=== PATIENT | female | born 1980 | race Caucasian/White ===

== ENCOUNTER 2024-09-15 16:54 | Inpatient (IN) | payer OTHER ==
[2024-09-15 17:31] LABS: BASOPHILS ABSOLUTE AUTO 0.04 K/uL (0.00-0.10); BASOPHILS PERCENT AUTO 0.3 % (0.1-1.3); EOSINOPHILS ABSOLUTE AUTO 0.05 K/uL (0.00-0.40); EOSINOPHILS PERCENT AUTO 0.3 % (0.0-5.4); HEMATOCRIT 43.7 % (34.3-46.0); HEMOGLOBIN 15.6 g/dL (11.2-15.5); IMMATURE GRAN ABSOLUTE AUTO 0.05 K/uL (0.00-0.23); IMMATURE GRAN PERCENT AUTO 0.3 % (0.0-0.7); LYMPHOCYTES ABSOLUTE AUTO 1.57 K/uL (0.8-3.3); LYMPHOCYTES PERCENT AUTO 10.2 % (11.4-47.7); MEAN CORPUSCULAR HEMOGLOBIN 35.2 pg (31.6-35.5); MEAN CORPUSCULAR HGB CONC 35.7 g/dL (31.6-35.5); MEAN CORPUSCULAR VOLUME 98.6 fL (81.4-99.0); MONOCYTES ABSOLUTE AUTO 0.84 K/uL (0.20-0.90); MONOCYTES PERCENT AUTO 5.5 % (3.3-12.6); NEUTROPHILS ABSOLUTE AUTO 12.86 K/uL (1.0-7.6); NEUTROPHILS PERCENT AUTO 83.4 % (40.0-78.1); PLATELET COUNT,PLT 244 K/uL (130-375); RED BLOOD CELL COUNT 4.43 M/uL (3.77-5.24); WHITE BLOOD CELL COUNT,WBC 15.4 K/uL (3.2-11.0)
[2024-09-15] MEDS: Iopamidol 612 MG/ML 100 ML Bottle IV SCH (17:48)
[2024-09-15] MEDS: Sodium Chloride 0.9% 60 ML IV SCH (17:48)
[2024-09-15 17:54] LABS: A/G RATIO 1.2 (1.2-2.2); ALANINE AMINOTRANSFERASE,ALT 26 U/L (12-78); ALBUMIN 4.4 g/dL (3.4-5.0); ALKALINE PHOSPHATASE 82 U/L (46-116); ASPARTATE AMNIOTRANSFERASE,AST 15 U/L (15-37); BILIRUBIN TOTAL 0.9 mg/dL (0.2-1.0); BLOOD UREA NITROGEN,BUN 7 mg/dL (7-18); C-REACTIVE PROTEIN 4.53 mg/dL (<0.50); CALCIUM 9.7 mg/dL (8.5-10.1); CARBON DIOXIDE,CO2 27 mmol/L (21-32); CHLORIDE,CL 102 mmol/L (100-108); CREATININE 0.7 mg/dL (0.6-1.0); EST CRCL DRUG DOSING (CG) 83.07 mL/min; ESTIMATED GFR 108 mL/min (>60); GLUCOSE RANDOM 97 mg/dL (74-106); POTASSIUM,K 3.7 mmol/L (3.6-5.2); SODIUM,NA 139 mmol/L (140-148)
[2024-09-15 17:57] LABS: ANION GAP 13.7 mmol/L (5.0-14.0)
[2024-09-15] MEDS: Lactated Ringers 1,000 ML IV SCH (18:00)
[2024-09-15] MEDS: Sodium Chloride 0.9% 10 ML Syringe FLUSH PRN (18:00)
[2024-09-15] MEDS ORDERED: Naloxone 0.4 MG/ML SDV IVPUSH PRN ×2 (19:03→20:35)
[2024-09-15] MEDS: Ondansetron 4 MG/2 ML SDV IVPUSH ONE (19:09)
[2024-09-15] MEDS: HYDROmorphone 0.5 MG/0.5 ML Syringe IVPUSH ONE (19:12)
[2024-09-15] MEDS: LORazepam 1 MG Tab PO ONE (20:23)
[2024-09-15] MEDS ORDERED: Morphine 2 MG/ML SYRINGE IVPUSH PRN (20:35)
[2024-09-15] MEDS ORDERED: Ondansetron 4 MG Tab.DIS PO PRN (20:35)
[2024-09-15] MEDS ORDERED: Ondansetron 4 MG/2 ML SDV IV PRN (20:35)
[2024-09-15] MEDS ORDERED: Albuterol/Ipratropium 3.0-0.5 MG/3 ML Neb Soln NEB PRN (20:35)
[2024-09-15] MEDS ORDERED: Albuterol 0.083% 2.5 MG/3 ML Neb Soln NEB PRN (20:35)
[2024-09-15] MEDS ORDERED: Formoterol/Mometasone 200-5 MCG 8.8 GM Inhaler INH PRN (20:35)
[2024-09-15] MEDS ORDERED: Acetaminophen 325 MG Tab PO PRN (20:35)
[2024-09-15] MEDS: Pantoprazole 40 MG Vial IVPUSH SCH (21:16)
[2024-09-15] MEDS: Piperacillin/Tazobactam 4.5 GM in Sodium Chloride 0.9% 100 ML IV ONE (21:17)
[2024-09-15] MEDS: Sodium Chloride 0.9% 1,000 ML IV SCH (21:20)
[2024-09-15] MEDS: methylPREDNISolone Sodium Succinate 40 MG/1 ML SDV IVPUSH SCH (21:26)
[2024-09-15] MEDS: Nicotine 14 MG/24 Hr Patch TRDERM SCH (22:18)
[2024-09-15] MEDS: metroNIDAZOLE/Normal Saline 500 MG in Premix Bag 1 BAG IV SCH (22:18)
[2024-09-15] MEDS: ALPRAZolam 0.5 MG Tab PO PRN (23:49)
[2024-09-16 00:08] LABS: APPEARANCE,URINE CLEAR (CLEAR); BILIRUBIN,URINE NEGATIVE (NEGATIVE); COLOR,URINE YELLOW (YELLOW); GLUCOSE,URINE NEGATIVE (NEGATIVE); KETONES,URINE NEGATIVE (NEGATIVE); LEUKOCYTE ESTERASE,URINE NEGATIVE (NEGATIVE); NITRITE,URINE NEGATIVE (NEGATIVE); OCCULT BLOOD,URINE SMALL (NEGATIVE); PH,URINE 7.5 (5.0-8.0); PROTEIN,URINE NEGATIVE (NEGATIVE); UROBILINOGEN,URINE 0.2 EU/dL (0.2-1.0)
[2024-09-16 00:14] LABS: AMORPHOUS SEDIMENT,URINE NOT SEEN; BACTERIA,URINE FEW; EPITHELIAL CELLS,URINE RARE; MUCUS,URINE FEW; WBC,URINE 0-5 (0-5)
[2024-09-16] MEDS: Piperacillin/Tazobactam 4.5 GM in Sodium Chloride 0.9% 100 ML IV SCH (01:09)
[2024-09-16] MEDS: Piperacillin/Tazobactam 3.375 GM in Sodium Chloride 0.9% 50 ML IV SCH (01:11)
[2024-09-16 05:34] LABS: BASOPHILS PERCENT AUTO 0.2 % (0.1-1.3); HEMATOCRIT 39.8 % (34.3-46.0); HEMOGLOBIN 13.9 g/dL (11.2-15.5); IMMATURE GRAN ABSOLUTE AUTO 0.05 K/uL (0.00-0.23); IMMATURE GRAN PERCENT AUTO 0.4 % (0.0-0.7); LYMPHOCYTES PERCENT AUTO 5.2 % (11.4-47.7); MEAN CORPUSCULAR HEMOGLOBIN 34.8 pg (31.6-35.5); MEAN CORPUSCULAR HGB CONC 34.9 g/dL (31.6-35.5); MEAN CORPUSCULAR VOLUME 99.7 fL (81.4-99.0); MONOCYTES ABSOLUTE AUTO 0.13 K/uL (0.20-0.90); MONOCYTES PERCENT AUTO 1.1 % (3.3-12.6); NEUTROPHILS ABSOLUTE AUTO 10.81 K/uL (1.0-7.6); NEUTROPHILS PERCENT AUTO 93.1 % (40.0-78.1); PLATELET COUNT,PLT 230 K/uL (130-375); RED BLOOD CELL COUNT 3.99 M/uL (3.77-5.24); WHITE BLOOD CELL COUNT,WBC 11.6 K/uL (3.2-11.0)
[2024-09-16 05:46] LABS: BASOPHILS ABSOLUTE AUTO 0.02 K/uL (0.00-0.10)
[2024-09-16 05:54] LABS: CALCIUM 9.2 mg/dL (8.5-10.1); CREATININE 0.7 mg/dL (0.6-1.0); EST CRCL DRUG DOSING (CG) 83.41 mL/min; POTASSIUM,K 3.8 mmol/L (3.6-5.2)
[2024-09-16 05:56] LABS: ANION GAP 11.8 mmol/L (5.0-14.0)
[2024-09-16] MEDS ORDERED: Formoterol/Mometasone 200-5 MCG 8.8 GM Inhaler INH PRN (07:07)
[2024-09-16] MEDS: oxyCODONE 5 MG Tab PO PRN (09:05)
[2024-09-16] MEDS: Piperacillin/Tazobactam/Dext 4.5 GM in Premix Bag 1 BAG IV SCH (09:06)
== END 2024-09-16 13:55 | disposition home or self-care (01) | DRG 392 ==
LOC: JP.ED 16:54 → JP.MS 19:52
PROVIDERS: ADMIT Internal Medicine; ATTEND Internal Medicine
DX: K57.32 Diverticulitis of large intestine without perforation or abscess without bleeding (principal); E44.1 Mild protein-calorie malnutrition; Z68.1 Body mass index [BMI] 19.9 or less, adult; K52.9 Noninfective gastroenteritis and colitis, unspecified; J45.909 Unspecified asthma, uncomplicated; K21.9 Gastro-esophageal reflux disease without esophagitis; F41.9 Anxiety disorder, unspecified; F17.210 Nicotine dependence, cigarettes, uncomplicated; F15.90 Other stimulant use, unspecified, uncomplicated; Z88.8 Allergy status to other drugs, medicaments and biological substances; Z79.51 Long term (current) use of inhaled steroids; Z79.899 Other long term (current) drug therapy; Z86.16 Personal history of COVID-19; Z98.890 Other specified postprocedural states
CPT/HCPCS: 36415; 74177; 80048; 80053; 81001; 85025; 86140; 96361; 96374; 96375; 99222; 99238; 99285; 99285-25; A9270-GY; J1171; J1836; J2405; J2470; J2543; J2919; J3490; J7030; J7120; Q9967

== ENCOUNTER 2024-12-11 06:22 | Day surgery (SDC) | payer OTHER ==
[2024-12-11] MEDS ORDERED: Propofol 200 MG/20 ML SDV ONE (07:02)
[2024-12-11] MEDS ORDERED: fentaNYL 50 MCG/ML SDV ONE (07:02)
[2024-12-11] MEDS ORDERED: Midazolam 1 MG/ML 2 ML SDV ONE (07:02)
[2024-12-11] MEDS: Lactated Ringers 1,000 ML IV SCH (07:20)
== END 2024-12-11 09:01 | disposition home or self-care (01) ==
LOC: JP.SDS 06:22
PROVIDERS: ATTEND Surgery
DX: D12.4 Benign neoplasm of descending colon (principal); K57.30 Diverticulosis of large intestine without perforation or abscess without bleeding; R10.9 Unspecified abdominal pain
CPT/HCPCS: 00811; 45380; 45385; 81025; 88305; J2250; J2704; J3010; J7120